=== PATIENT | female | born 1955 | race Caucasian/White ===

== ENCOUNTER 2016-08-03 13:03 | Emergency (ER) | payer OTHER ==
[~2016-08-03] VITALS: Ht 160 cm; Wt 61.0 kg
[~2016-08-03 13:03] MED LIST: CLAR10CA3 PO; DEXI60CA PO; LOSA50TA PO; NAPR500T PO; OMEG100037 PO
[2016-08-03 13:04] VITALS: BP 197/86; PULSE 100; RESP 20; TEMP 98.7; O2SAT 99
[2016-08-03 13:30] VITALS: BP 157/78; PULSE 90; RESP 16; O2SAT 97
[2016-08-03] MEDS ORDERED: SODIUM CHLOR 0.9% 1000 ML INJ 1,000 ML IV SCH (13:32)
[2016-08-03] MEDS ORDERED: SODIUM CHLORIDE 0.9% FLUSH 10 ML FLUSH IV FLUSH PRN (13:45)
--- NOTE | 2016-08-03 13:47 | PD ---
HPI Chief Complaint: Flank/Kidney Pain Time Seen by Provider: 13:38 Travel History International Travel<30 days: No Contact w/Intl Traveler<30days: No Traveled to known affect area: No History of Present Illness HPI 60-year-old female with a history of hypertension presents to the emergency department for evaluation of right flank pain intermittently for the past 3 days. Patient denies any injury or trauma to her back. States that her symptoms last about an hour and resolve on their own. Denies any aggravating or alleviating factors. States that she describes the pain as a sharp stabbing pain in her right flank. States that the pain has been getting worse over the last 3 days and today it was associated with some nausea. She denies any fever , chills, vomiting, diarrhea, constipation, dysuria, hematuria. Prior abdominal surgeries include hysterectomy with bilateral salpingectomy and unilateral oophorectomy. Denies any history of kidney stones. PCP is Dr. Steel. No other complaints. PFSH Past Medical History Heart Rhythm Problems: No Cardiac Catheterization: No Cardiovascular Problems: No High Cholesterol: Yes Chest Pain: Yes Congestive Heart Failure: No Diabetes: No Diminished Hearing: No GERD: Yes Hepatitis: Yes (C) Hiatal Hernia: No Hypertension: Yes Medical other: Yes (GERD, HEPATITIS C) Thyroid Disease: No ?: Not : 3 Para: 3 Past Surgical History Coronary Artery Bypass Graft: No Gynecologic Surgery: Yes (HYSTERECTOMY, LEFT OOPHORECTOMY) Hysterectomy: Yes Pacemaker: No Family History Family Myocardial Infarction: Yes Family Hypercholesterolemia: Yes Social History Alcohol Use: Yes Tobacco Use: No Substance Use: No Allergies-Medications (Allergen,Severity, Reaction): Coded Allergies: HMG-CoA Reductase Inhibitors (Verified Allergy, Unknown, 08/03/16) MYALGIAS Reported Meds & Prescriptions Reported Meds & Active Scripts Active Reported Losartan (Losartan Potassium) 50 Mg Tab 50 Mg PO HS Review of Systems Except as stated in HPI: all other systems reviewed are Neg Physical Exam Narrative GENERAL: Well-nourished and well-developed pleasant female patient in no acute distress who is nontoxic appearing. SKIN: Warm and dry. HEAD: Normocephalic and atraumatic. EYES: No injection, drainage, or hyphema noted. PERRLA. EOMI. ENT: No nasal drainage noted. Oropharynx is clear. NECK: Supple and the trachea is midline. CARDIOVASCULAR: Regular rate and rhythm. RESPIRATORY: Breath sounds are equal bilaterally with no accessory muscle use, wheezing, rhonchi, or crackles. GASTROINTESTINAL: Abdomen is soft, non-tender, and nondistended. Negative Burgess's sign. Negative McBurney's point. No rebound tenderness or guarding. MUSCULOSKELETAL: No obvious deformities, swelling, cyanosis, or ecchymosis is present throughout the upper and lower extremities. Patient has full range of motion without any signs of neurovascular compromise. Strength 5/5 upper and lower extremities equal bilaterally. SLR negative. BACK: Right CVA tenderness. No midline bony point tenderness or crepitus noted throughout the thoracic and lumbar vertebrae. NEUROLOGICAL: Awake, alert, and oriented. Normal speech and gait. Cranial nerves are grossly intact. Data Data Last Documented VS Vital Signs Date Time Temp Pulse Resp B/P Pulse Ox O2 Delivery O2 Flow Rate FiO2 08/03/16 13:52 16 95 Room Air 08/03/16 13:04 98.7 100 197/86 Orders Complete Blood Count With Diff (08/03/16 13:32) Comprehensive Metabolic Panel (08/03/16 13:32) Lipase (08/03/16 13:32) Urinalysis - C+S If Indicated (08/03/16 13:32) Ct Abd/Pel W/O Iv Contrast (08/03/16 13:32) Iv Access Insert/Monitor (08/03/16 13:32) Ecg Monitoring (08/03/16 13:32) Oximetry (08/03/16 13:32) Sodium Chlor 0.9% 1000 Ml Inj (Ns 1000 M (08/03/16 13:32) Sodium Chloride 0.9% Flush (Ns Flush) (08/03/16 13:45) Labs Laboratory Tests Test 08/03/16 08/03/16 13:38 13:44 Urine Color YELLOW Urine Turbidity CLEAR Urine pH 7.0 Urine Specific [place] 1.021 Urine Protein TRACE mg/dL Urine Glucose (UA) NEG mg/dL Urine Ketones NEG mg/dL Urine Occult Blood NEG Urine Nitrite NEG Urine Bilirubin NEG Urine Urobilinogen LESS THAN 2.0 MG/DL Urine Leukocyte Esterase NEG Urine RBC 2 /hpf Urine WBC 1 /hpf Urine Squamous Epithelial <1 /hpf Cells Urine Mucus FEW /lpf Microscopic Urinalysis Comment CULT NOT INDICATED White Blood Count 6.7 TH/MM3 Red Blood Count 5.21 MIL/MM3 Hemoglobin 14.7 GM/DL Hematocrit 43.4 % Mean Corpuscular Volume 83.4 FL Mean Corpuscular Hemoglobin 28.2 PG Mean Corpuscular Hemoglobin 33.8 % Concent Red Cell Distribution Width 13.8 % Platelet Count 446 TH/MM3 Mean Platelet Volume 7.2 FL Neutrophils (%) (Auto) 54.2 % Lymphocytes (%) (Auto) 31.1 % Monocytes (%) (Auto) 9.3 % Eosinophils (%) (Auto) 4.3 % Basophils (%) (Auto) 1.1 % Neutrophils # (Auto) 3.6 TH/MM3 Lymphocytes # (Auto) 2.1 TH/MM3 Monocytes # (Auto) 0.6 TH/MM3 Eosinophils # (Auto) 0.3 TH/MM3 Basophils # (Auto) 0.1 TH/MM3 CBC Comment DIFF FINAL Differential Comment Sodium Level 140 MEQ/L Potassium Level 3.7 MEQ/L Chloride Level 105 MEQ/L Carbon Dioxide Level 29.1 MEQ/L Anion Gap 6 MEQ/L Blood Urea Nitrogen 17 MG/DL Creatinine 1.09 MG/DL Estimat Glomerular Filtration 51 ML/MIN Rate Random Glucose 99 MG/DL Calcium Level 9.5 MG/DL Total Bilirubin 0.4 MG/DL Aspartate Amino Transf 16 U/L (AST/SGOT) Alanine Aminotransferase 24 U/L (ALT/SGPT) Alkaline Phosphatase 91 U/L Total Protein 7.9 GM/DL Albumin 4.0 GM/DL Lipase 165 U/L [facility] Medical Decision Making Medical Screen Exam Complete: Yes Emergency Medical Condition: Yes Differential Diagnosis Nephrolithiasis versus pyelonephritis versus muscle strain versus sciatica Narrative Course 60-year-old female presents to the emergency department for evaluation of right- sided flank pain intermittently for 3 days. Patient is afebrile. She is slightly tachycardic with heart rate 100 bpm. A little hypertensive with a blood pressure 197/86. Otherwise vital signs within normal limits. She does have right CVA tenderness. IV access is obtained, labs are been drawn and sent. Patient is placed on monitoring tech pulse oximetry monitoring. CT of the abdomen and pelvis without contrast has been ordered and is pending. The patient is offered medication for her pain but at this time states that she is having no pain and does not want anything at this time. CBC is unremarkable. CMP shows slightly elevated creatinine of 1.09, GFR 51. Urinalysis shows few mucus. CT of the abdomen and pelvis is negative for any acute abnormalities. Patient has remained stable and without complaint while here in the emergency department. I discussed all findings with the patient. Her symptoms are likely musculoskeletal in etiology. She'll be prescribed NSAIDs and muscle relaxers. Discussed supportive care. Advised follow-up with her PCP. Patient verbalizes understanding and agreement with treatment plan. I discussed the case with my attending physician Dr. Batista who is aware of the patients history, physical examination findings, and treatment plan. Diagnosis Primary Impression: Back pain Qualified Code: M54.5 - Acute right-sided low back pain without sciatica Referrals: Primary Care Physician Patient Instructions: Back Pain (ED), General Instructions Additional Instructions: Apply and heating pad. Perform gentle stretches. Take medications as prescribed with food and a full glass of water. Do not take Flexeril with alcohol or while driving. You may cut the Flexeril tablet in half for a decreased dose. Follow-up with your Primary Care Physician. Return to the ED for any acute worsening of symptoms. Med/Other Pt SpecificInfo: Prescription(s) given Scripts Cyclobenzaprine (Flexeril)10 Mg Tab10 Mg PO TID 7 Days Ref 0 Prov:Jordy Batista MD 08/03/16 Naproxen 500 Mg Hcn250 Mg PO BID 7 Days Ref 0 Prov:Jordy Batista MD 08/03/16 Disposition: 01 DISCHARGE HOME Condition: Stable Farideh Dsouza Aug 03, 2016 13:47
[2016-08-03 13:52] VITALS: RESP 16; O2SAT 95
[2016-08-03 13:53] LABS: AUTOMATED NEUTROPHIL # 3.6 TH/MM3 (1.8-7.7); BASOPHIL # 0.1 TH/MM3 (0-0.2); BASOPHIL % 1.1 % (0.0-2.0); EOSINOPHIL # 0.3 TH/MM3 (0-0.4); EOSINOPHIL % 4.3 % (0.0-4.0); HEMATOCRIT 43.4 % (35.0-46.0); HEMO FLAGS DIFF FINAL; LYMPH % 31.1 % (9.0-44.0); LYMPHOCYTE # 2.1 TH/MM3 (1.0-4.8); MEAN CELL VOLUME 83.4 FL (80.0-100.0); MEAN CORPUSCULAR HEMOGLOBIN 28.2 PG (27.0-34.0); MEAN CORPUSCULAR HGB CONC 33.8 % (32.0-36.0); MONO % 9.3 % (0.0-8.0); NEUT % 54.2 % (16.0-70.0); PLATELET COUNT 446 TH/MM3 (150-450); RED BLOOD COUNT 5.21 MIL/MM3 (4.00-5.30); RED CELL DISTRIBUTION WIDTH 13.8 % (11.6-17.2); WHITE BLOOD COUNT 6.7 TH/MM3 (4.0-11.0)
[2016-08-03 13:56] LABS: BLOOD, URINE NEG (NEG); COMMENT (UR) CULT NOT INDICATED; CULTURE IF INDICATED CULT NOT INDICATED; GLUCOSE,URINE NEG (NEG); KETONE, URINE NEG (NEG); MUCUS URINE FEW /lpf (OCC); NITRITE,URINE NEG (NEG); SQUAMOUS EPITHELIAL CELL URINE <1 /hpf (0-5); URINE COLOR YELLOW (YELLW/STRAW)
[2016-08-03 14:21] LABS: ALT (GPT) 24 U/L (10-53); ANION GAP 6 MEQ/L (5-15); AST (GOT) 16 U/L (15-37); BICARBONATE 29.1 MEQ/L (21.0-32.0); BLOOD UREA NITROGEN 17 MG/DL (7-18); CHLORIDE 105 MEQ/L (98-107); GLOMERULAR FILTRATION RATE 51 ML/MIN (>89); POTASSIUM 3.7 MEQ/L (3.5-5.1); SODIUM (NA) 140 MEQ/L (136-145)
[2016-08-03 14:23] LABS: ALKALINE PHOSPHATASE 91 U/L (45-117); TOTAL BILIRUBIN ADULT 0.4 MG/DL (0.2-1.0)
[2016-08-03 14:30] VITALS: BP 133/60; PULSE 92; RESP 16; O2SAT 97
--- NOTE | 2016-08-03 14:59 | RADRPT ---
EXAM DATE/TIME: 08/03/2016 14:17 [facility] COMPARISON: No previous studies available for comparison. INDICATIONS : Right flank pain for three days. ORAL CONTRAST: No oral contrast ingested. RADIATION DOSE: 5.83 CTDIvol (mGy) MEDICAL HISTORY : Hepatitis C. Gastroesophageal reflux disease. Hypertension. SURGICAL HISTORY : Hysterectomy. ENCOUNTER: Initial ACUITY: 3 days PAIN SCALE: 8/10 LOCATION: Right flank TECHNIQUE: Volumetric scanning of the abdomen and pelvis was performed. Using automated exposure control and ad justment of the mA and/or kV according to patient size, radiation dose was kept as low as reasonably achievable to obtain optimal diagnostic quality images. FINDINGS: LOWER LUNGS: Small calcified granuloma in the right lung base. LIVER: Homogeneous density without lesion. There is no dilation of the biliary tree. No calcified gallston es. SPLEEN: Normal size without lesion. PANCREAS: Within normal limits. KIDNEYS: Kidneys are symmetrical in size without evidence for significant hydronephrosis or radiopaque renal c alculi. No significant contour deforming mass. ADRENAL GLANDS: Within normal limits. VASCULAR: There is no aortic aneurysm. BOWEL/MESENTERY: Appendix is visualized and normal in appearance. Mild to moderate sigmoid and scattered descending co lonic diverticulosis. No significant inflammatory stranding to suggest diverticulitis. The bowel is o therwise unremarkable. ABDOMINAL WALL: Within normal limits. RETROPERITONEUM: There is no lymphadenopathy. BLADDER: No wall thickening or mass. REPRODUCTIVE: Uterus is surgically absent. INGUINAL: Subcentimeter bilateral like reactive inguinal nodes. MUSCULOSKELETAL: Degenerative spondylosis of the lower lumbar spine most prominently at L5-S1 with vacuum disc phenome non CONCLUSION: 1. Normal appendix. 2. No definite findings to explain patient's right flank pain. Rodrick Smith MD on August 03, 2016 at 14:30 Board Certified Radiologist. This report was verified electronically.
[2016-08-03] MEDS ORDERED: NAPR500T PO (15:06)
[2016-08-03] MEDS ORDERED: CYCL1TAB29 PO (15:06)
[2016-08-03 15:28] VITALS: BP 152/85; PULSE 89; RESP 16; O2SAT 97
== END 2016-08-03 15:40 | disposition home or self-care (01) ==
LOC: NEPE 13:03
DX: M54.5 Low back pain (principal); I10 Essential (primary) hypertension; E78.00 Pure hypercholesterolemia, unspecified; K21.9 Gastro-esophageal reflux disease without esophagitis; B19.20 Unspecified viral hepatitis C without hepatic coma
CPT/HCPCS: 74176; 80053; 81001; 83690; 85025; 96360; 99284; J7030